=== PATIENT | female | born 1995 | race Caucasian/White ===

== ENCOUNTER → 2016-10-16 | Outpatient (CLI) | payer OTHER | END | disposition home or self-care (01) | LOC: C.PAPS 10:45 | PROVIDERS: ATTEND Obstetrics & Gynecology | DX: Z12.4 Encounter for screening for malignant neoplasm of cervix (principal) ==

== ENCOUNTER → 2017-03-10 | Outpatient (CLI) | payer OTHER ==
[2017-03-10 14:48] LABS: PREG INTERNAL NEGATIVE QC NEG CLEAR BACKGROUND; PREG INTERNAL POSITIVE QC POS CONTROL LINE
[2017-03-10 15:22] LABS: INSULIN FASTING 34.3 mU/L (3-25); INSULIN LOG 1.5353
[2017-03-10 16:05] LABS: CALCULATED INSULIN SENSITIVITY 0.281
== END | disposition home or self-care (01) ==
LOC: C.LAB1850 12:29
PROVIDERS: ATTEND Physician Assistant
DX: N91.2 Amenorrhea, unspecified (principal)

== ENCOUNTER → 2017-06-08 | Outpatient (CLI) | payer OTHER | END | disposition home or self-care (01) | LOC: C.LAB1850 16:03 | PROVIDERS: ATTEND Physician Assistant | DX: N91.2 Amenorrhea, unspecified (principal) ==

== ENCOUNTER 2017-12-29 22:14 | Emergency (ER) | payer OTHER ==
[~2017-12-29] VITALS: Ht 167.6 cm; Wt 114.0 kg
[2017-12-29 22:24] VITALS: Ht 167.6 cm; Wt 114.0 kg
--- NOTE | 2017-12-29 22:56 | DIAGNOSTIC IMAGING REPORT ---
R FOOT MIN 3 VIEWS ROUTINE HISTORY: 22 years-old Female RIGHT, PAIN 4-5 METATARSALS acute right foot pain, most pronounced in the fourth and fifth metatarsals. No reported trauma. COMPARISON: Right ankle radiographs 08/03/2006 TECHNIQUE: 3 views of the right foot FINDINGS: There is suggestion of mild medial soft tissue swelling about the forefoot. Moderate sized enthesophyte of the plantar calcaneus. No acute fracture, dislocation or opaque foreign body. No stress fracture. IMPRESSION: No acute fracture or dislocation. The above report was generated using voice recognition software. It may contain grammatical, syntax or spelling errors. Electronically signed by: Raghav Dunn M.D. 12/29/2017 10:55 PM Dictated Date/Time: 12/29/2017 10:52 PM
--- NOTE | 2017-12-29 23:09 | EMERGENCY ROOM VISIT NOTE ---
ED Visit Note First contact with patient: 22:28 CHIEF COMPLAINT: Right foot pain 1 day Patient is a healthy 22-year-old female who presents the emergency department for evaluation of right foot pain. She states that her pain started yesterday after work. 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 She notes pain in the dorsolateral aspect of the foot primarily over the third and fourth metatarsals, she states that it does radiate slightly toward her ankle and the lateral calf. She states that the pain progressively worsened throughout the day today. She ultrasounded her right foot and had pain , and was told by coworkers that this could indicate a fracture. She states that it felt better when she put ice on her foot and elevated it. It is worse with weight-bearing. She has been taking ibuprofen with minimal relief, and also has applied a TENS unit. She rates her pain a 7/10. She states the pain is throbbing in nature. She was in [place] for vacation last week and did a lot of walking. She was wearing sneakers at the time. REVIEW OF SYSTEMS: Review of systems as per HPI. All other systems reviewed were negative. 10 systems reviewed. PMH: Electronic medical records are reviewed and summarized as above/below. See Problem List. SOCIAL HISTORY: Patient lives at home with her . Non-smoker, rare EtOH. PHYSICAL EXAM: Vital Signs: Reviewed Nurse's notes. GENERAL: Pleasant well- appearing 22-year-old white female who is awake and alert and in no acute distress. MUSCULOSKELETAL: Examination of the right foot does not note any obvious deformity. There is very slight dorsal lateral soft tissue swelling. Medial and lateral malleolus are nontender to palpation, no ankle joint effusion is palpable. She has tenderness to palpation over the mid fourth and fifth metatarsals, no obvious fracture crepitus. Skin is intact without ecchymosis. Lisfranc joint is negative. She is able to dorsiflex and plantarflex fully, has pain with plantarflexion, and with passive inversion and inversion of the midfoot. The right lower extremity is neurovascularly intact. EMERGENCY DEPARTMENT COURSE: X-rays of the right foot were obtained. There is no evidence for acute fracture or bony abnormality. Differential diagnoses entertained included fracture, stress fracture, overuse injury, tendinitis, among others. The patient was wrapped with an Dylan wrap and placed in a postoperative shoe. She has crutches at home that she will use. She will continue measures as noted above, she declined narcotic analgesia. She was encouraged to follow-up with orthopedics if she does not feel that her symptoms are improving. Medication reconciliation: I attest that I have personally reviewed the patient' s current medication list. Blood pressure screening: Patient was found to have a slightly elevated blood pressure due to circumstances. I do not believe that the patient requires hypertension monitoring. R FOOT MIN 3 VIEWS ROUTINE HISTORY: 22 years-old Female RIGHT, PAIN 4-5 METATARSALS acute right foot pain, most pronounced in the fourth and fifth metatarsals. No reported trauma. COMPARISON: Right ankle radiographs 08/03/2006 TECHNIQUE: 3 views of the right foot FINDINGS: There is suggestion of mild medial soft tissue swelling about the forefoot. Moderate sized enthesophyte of the plantar calcaneus. No acute fracture, dislocation or opaque foreign body. No stress fracture. IMPRESSION: No acute fracture or dislocation. Current/Historical Medications Miscellaneous Medications None (Patient States No Home Meds) Allergies Coded Allergies: No Known Allergies (Unverified Allergy, Mild, 08/03/06) Vital Signs Date Time Temp Pulse Resp B/P (MAP) Pulse Ox O2 Delivery O2 Flow Rate FiO2 12/29/17 22:24 37.0 104 20 155/84 100 Room Air Departure Information Impression Primary Impression: Right foot pain Referrals Jer Khalil M.D. (PCP) Jian Chi D.O. Patient Instructions [facility] Additional Instructions Ibuprofen(Motrin, Advil) may be used for fever or pain. Use 600mg every six hours as needed. Take with food. Avoid using more than 2400mg in a 24 hour period. Do not use 2400mg per day for more than three consecutive days without physician direction. Prolonged inappropriate use can lead to stomach upset or ulcers. This medication can be taken if you need to drive, work, or perform activities which may be dangerous when taking narcotic pain medication. (AND/OR) Acetaminophen(Tylenol) may be used for fever or pain. Use 1000mg every six hours as needed. Avoid using more than 3000mg in a 24 hour period. This medication can be taken if you need to drive, work, or perform activities which may be dangerous when taking narcotic pain medication. Ice compresses for 20 minutes at a time four times daily for 2-3 days. Use the postoperative shoe and/or crutches as instructed. Rest and elevate your injury. Continue current medications. Return to the ER immediately for any numbness, tingling, severe pain, extreme swelling in the extremity or as needed. Followup with your family doctor or orthopedic surgery if no improvement in 5-7 days.
[2017-12-29 23:21] VITALS: BP 162/82; PULSE 93; O2SAT 97
== END 2017-12-29 23:21 | disposition still patient (30) ==
LOC: C.EDB 22:15 → C.EDC 23:21
DX: M79.671 Pain in right foot (principal)